=== PATIENT | female | born 1965 | race Caucasian/White ===

== ENCOUNTER 2018-07-18 11:21 | Day surgery (SDC) | payer MEDICAID ==
[~2018-07-18] VITALS: Ht 157.5 cm; Wt 81.8 kg
[~2018-07-18 11:21] MED LIST: ESCI20TA29 PO; ESCI20TA38 PO; EST1T PO; HYDR-3965 PO; LAMO200T PO; LAMO25TA62 PO; METR500T4 PO; NORCO10T PO; POTA20TA19 PO; RISP3TAB11 PO; RISP3TAB3 PO; ROSU10TA PO; TRAZ-91 PO; TRAZ150T78 PO; [UNRECOGNIZED DRUG - CODE] PO
[2018-07-18 11:30] VITALS: BP 160/101
[2018-07-18] MEDS ORDERED: TRAZ150T78 PO (11:40)
[2018-07-18] MEDS ORDERED: LAMO200T PO (11:41)
[2018-07-18] MEDS ORDERED: fentaNYL/PF 50MCG/1 ML 2ML syringe ONE (11:51)
[2018-07-18] MEDS ORDERED: MIDAZolam 5mg/5ml vial ONE (11:52)
[2018-07-18 14:05] VITALS: BP 128/72
[2018-07-18 14:13] VITALS: BP 118/59
[2018-07-18 14:23] VITALS: BP 141/78
[2018-07-18 14:33] VITALS: BP 119/79
== END 2018-07-18 14:40 | disposition home or self-care (01) ==
LOC: GI LAB 11:21
PROVIDERS: ATTEND Internal Medicine Gastroenterology
DX: Z12.11 Encounter for screening for malignant neoplasm of colon (principal); D12.2 Benign neoplasm of ascending colon; D12.5 Benign neoplasm of sigmoid colon; D12.3 Benign neoplasm of transverse colon; K57.30 Diverticulosis of large intestine without perforation or abscess without bleeding; G89.29 Other chronic pain; Z86.010 Personal history of colon polyps; Z79.891 Long term (current) use of opiate analgesic; Z88.2 Allergy status to sulfonamides; Z90.710 Acquired absence of both cervix and uterus; Z88.5 Allergy status to narcotic agent; Z88.6 Allergy status to analgesic agent; Z86.69 Personal history of other diseases of the nervous system and sense organs; Z90.49 Acquired absence of other specified parts of digestive tract; Z86.14 Personal history of Methicillin resistant Staphylococcus aureus infection; Z85.3 Personal history of malignant neoplasm of breast; Z92.21 Personal history of antineoplastic chemotherapy; Z79.899 Other long term (current) drug therapy; Z98.890 Other specified postprocedural states
CPT/HCPCS: 45385; 99152; J2250; J3010; J7030; 99153; A4620

== ENCOUNTER 2024-07-03 08:49 | Day surgery (SDC) | payer MEDICAID ==
[~2024-07-03] VITALS: Ht 157.5 cm; Wt 84.0 kg
[~2024-07-03 08:49] MED LIST changes: +ALBU8HFA INH; -ESCI20TA29 PO; -ESCI20TA38 PO; -HYDR-3965 PO; -LAMO200T PO; +LAMO200T10 PO; -LAMO25TA62 PO; -METR500T4 PO; -NORCO10T PO; -POTA20TA19 PO; -RISP3TAB3 PO; -ROSU10TA PO; +ROSU10TA2 PO; -TRAZ-91 PO; -[UNRECOGNIZED DRUG - CODE] PO
[2024-07-03 09:00] VITALS: BP 125/84; PULSE 86; RESP 11
[2024-07-03] MEDS ORDERED: propofol inj 20 ML IV ONE (10:07)
[2024-07-03 10:16] VITALS: BP 120/82; PULSE 78; RESP 16; O2SAT 98
[2024-07-03] MEDS ORDERED: simethicone 40mg/0.6ml oral drops 30ml ONE (10:20)
[2024-07-03 10:26] VITALS: BP 130/77; PULSE 71; RESP 12; O2SAT 97
[2024-07-03 10:36] VITALS: BP 141/85; PULSE 69; RESP 13; O2SAT 98
[2024-07-03 10:46] VITALS: BP 135/95; PULSE 74; RESP 19; O2SAT 96
[2024-07-12] MEDS ORDERED: PANT-47 PO (09:44)
== END 2024-07-03 10:56 | disposition home or self-care (01) ==
LOC: GI LAB 08:49
PROVIDERS: ATTEND Internal Medicine Gastroenterology
DX: R13.10 Dysphagia, unspecified (principal); R10.13 Epigastric pain; K29.50 Unspecified chronic gastritis without bleeding; K20.90 Esophagitis, unspecified without bleeding; F31.9 Bipolar disorder, unspecified; Z79.899 Other long term (current) drug therapy; Z88.2 Allergy status to sulfonamides; Z88.5 Allergy status to narcotic agent; Z88.6 Allergy status to analgesic agent
CPT/HCPCS: 43239; J2704; J7030; Z7512; A4618; A4620

== ENCOUNTER 2024-07-16 06:48 | Day surgery (SDC) | payer MEDICAID ==
[~2024-07-16] VITALS: Ht 157.5 cm; Wt 87.3 kg
[~2024-07-16 06:48] MED LIST changes: +PANT-47 PO
[2024-07-16 07:05] VITALS: BP 118/74; PULSE 74; RESP 14
[2024-07-16] MEDS ORDERED: MIDAZolam 1 MG/ML 5ML VIAL ONE ×2 (08:01→08:34)
[2024-07-16] MEDS ORDERED: diphenhydrAMINE 50 mg/ml inj ONE ×2 (08:01→08:34)
[2024-07-16] MEDS ORDERED: fentaNYL/PF 50MCG/1 ML 2ML syringe ONE ×2 (08:01→08:34)
[2024-07-16] MEDS ORDERED: simethicone 40mg/0.6ml oral drops 30ml ONE (08:40)
[2024-07-16 09:05] VITALS: BP 116/73; PULSE 86; RESP 16; O2SAT 98
[2024-07-16 09:15] VITALS: BP 116/72; PULSE 88; RESP 16; O2SAT 100
[2024-07-16 09:25] VITALS: BP 117/67; PULSE 89; RESP 16; O2SAT 100
[2024-07-16 09:35] VITALS: BP 114/82; PULSE 84; RESP 16; O2SAT 99
== END 2024-07-16 09:40 | disposition home or self-care (01) ==
LOC: GI LAB 06:48
PROVIDERS: ATTEND Internal Medicine Gastroenterology
DX: Z12.11 Encounter for screening for malignant neoplasm of colon (principal); D12.5 Benign neoplasm of sigmoid colon; K57.30 Diverticulosis of large intestine without perforation or abscess without bleeding
CPT/HCPCS: 45385; 99152; 99153; A4620; C1889; J1200; J2250; J3010; J7030